=== PATIENT | male | born 1945 | race Caucasian/White ===

== ENCOUNTER → 2017-01-02 | Outpatient (CLI) | payer OTHER ==
[~2017-01-02] MED LIST: ACETAMINOPHEN325 M1 PO; ADVAIR 250-501 EACH INH; ALDACTONE25 MG PO; ALLEGRA ALLERG180 MG PO; ALLEGRA-D 12 H1 EAC1 PO; ALLOPURINOL 30300 M1 PO; ASPIRIN EC325 M1 PO; ASPIRIN81 M2 PO; CARVEDILOL6.25 MG PO; DIOVAN160 MG PO; DIOVAN320 MG PO; FISH OIL 1,0001 EAC5 PO; FLONASE16 GM NASAL; FOLIC ACID0.4 MG PO; HYTRIN 5 M5 MG/1 CAP PO; LASIX 40 MG TAB40 M1 PO; MUCINEX600 MG PO; MULTI VITAMIN1 EACH PO; NIACIN 500 MG500 M1 PO; PROAIR HFA8.5 GM INH; PROSCAR 5MG TABL5 M1 PO; TRIAMCINOLONE16.5 GM NASAL; VITAMIN B-12500 MCG PO; VYTORIN 10-201 EACH PO
== END ==
LOC: RAD 07:39
DX: R06.00 Dyspnea, unspecified (principal)